=== PATIENT | male | born 1985 | race Caucasian/White ===

== ENCOUNTER 2023-09-14 20:51 | Emergency (ER) | payer OTHER, SELFPAY ==
[2023-09-14 20:59] VITALS: BP 146/74; PULSE 89; RESP 18; TEMP 37.2; O2SAT 99; BMI 28.9
--- NOTE | 2023-09-14 21:29 | CRLHL7_ITS ---
For Patients: As a result of the Century Cures Act, medical imaging exams and procedure reports are released immediately into your electronic medical record. You may view this report before your referring provider. If you have questions, please contact your health care provider. INDICATION: Left-sided testicle swelling and pain for 1 week. COMPARISON: None. TECHNIQUE: Diaz scale imaging was performed of the scrotum. Color Doppler and spectral Doppler analysis was performed of the testes. FINDINGS: Testes: The right testis measures 3.6 x 2.0 x 2.5 cm and the left testis measures 3.7 x 2.1 x 2.4 cm. The testes demonstrate normal arterial and venous blood flow on color Doppler and spectral Doppler analysis. The testes have uniform echogenicity without evidence of a suspicious mass or area of inflammation. Epididymis: The right epididymis appears normal. The left epididymis is enlarged with increased vascular flow. Other: Moderate left hydrocele. Left-sided varicocele is present. Left-sided scrotal wall thickening/edema. IMPRESSION: 1. Enlarged hypervascular left epididymis compatible with epididymitis. No evidence of torsion. 2. Moderate left hydrocele and left-sided varicocele. Dictated by Amanda Arguello MD @ 09/15/2023 12:06:23 AM (Electronically Signed)
--- NOTE | 2023-09-14 22:13 | ED_ITS ---
HPI - General Adult General Chief complaint: Urogenital Problems, Male Stated complaint: testicle pain Time Seen by Provider: 09/14/23 21:11 History of Present Illness HPI narrative: CC: Left Testicluar Pain pt. notieced pain about a week ago. feels lump on testicle. twice the size of right testicle. denies urinary symptoms. pt. states my ejaculation shoots farther then before, and is clear, not creamy. denies pain with ejaculation. 38-year-old man presenting to the emergency department with concern of painful swelling on his left testicle or around it. This has been going on about a week. Prior to this he did have what sounds like a light trauma event while working out at the gym the next morning it was rather sore and swelling has increased. Has not noticed any hematuria no dysuria. During exam he does admit that he has always had very sensitive testicles. The left testicle in particular has swelled up. He has also noted ejaculate that is now clear and issues out surprisingly far. He has not had a fever. No discharge otherwise. What I understand to be some years ago he has had episodes where he feels like he has sudden pain and that it must be twisted and he demonstrates on twisting it and this apparently has resulted in relief of his discomfort. Does not otherwise describe any major/significant trauma. Related Data Home Medications ?Medication ?Instructions ?Recorded ?Confirmed tadalafil 20 mg tablet (Cialis) 20 mg PO DAILY 09/14/23 09/14/23 testosterone 100 mg/mL mg IM DIRECTED 09/14/23 intramuscular suspension Allergies Allergy/AdvReac Type Severity Reaction Status Date / Time cefaclor [From [facility]] Allergy Unknown Verified 09/14/23 21:23 Review of Systems Status of ROS: Reports: 6 or more systems reviewed and unremarkable except as noted in History and below [facility] Medical History Biceps tendinitis on right ?M75.21 - Bicipital tendinitis, right shoulder (ICD-10) Patellofemoral syndrome ?M22.2X9 - Patellofemoral disorders, unspecified knee (ICD-10) 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 - Juvenile osteochondrosis of tibia tubercle, unspecified leg (ICD- 10) Migraine, unspecified, intractable, without status migrainosus ?G43.919 - Migraine, unspecified, intractable, without status migrainosus (ICD-10) Lumbago ?M54.50 - Low back pain, unspecified (ICD-10) Hemorrhoid ?K64.9 - Unspecified hemorrhoids (ICD-10) Esophageal reflux ?K21.9 - Gastro-esophageal reflux disease without esophagitis (ICD-10) ADD (attention deficit disorder) without hyperactivity ?F98.8 - Other specified behavioral and emotional disorders with onset usually occurring in childhood and adolescence (ICD-10) Allergic rhinitis ?J30.9 - Allergic rhinitis, unspecified (ICD-10) Surgical History History of eye surgery ?Z98.890 - Other specified postprocedural states (ICD-10) History of shoulder surgery ?Z98.890 - Other specified postprocedural states (ICD-10) Social History Smoking Status: Never smoker Second hand tobacco smoke exposure: No How often do you have a drink containing alcohol: monthly or less AUDIT-C Alcohol total score: 1 Non-prescribed substance use: marijuana (any form) Exam Narrative: Exam Narrative: Pleasant. NAD. Of good energy. Well muscled. Accompanied here by significant other. Abdomen is soft. No inguinal lymphadenopathy. Right testicle seems little smaller. Left is approximately 4 cm with some epididymal area enlargement. Quite tender to palpation. No erythema no induration of the scrotum. Penis otherwise appears unremarkable. Const: Vital Signs, click to edit/add: Vital Signs - 24 hr 09/14/23 20:59 Temperature 99.0 F Pulse Rate [Right Pulse Oximeter] 89 Respiratory Rate 18 Blood Pressure [Ri ght Upper Arm] 146/74 H Pulse Oximetry 99 Oxygen Delivery Me thod Room Air Documenting provider has reviewed patient's vital signs: yes Course Vital Signs Vital signs: Initial Vital Signs Temperature 99.0 F 09/14/23 20:59 Temperature Source Temporal Artery Scan 09/14/23 20:59 Pulse Rate 89 09/14/23 20:59 Respiratory Rate 18 09/14/23 20:59 Blood Pressure 146/74 H 09/14/23 20:59 Blood Pressure Mean 98 09/14/23 20:59 Blood Pressure Position Sitting 09/14/23 20:59 Pulse Oximetry 99 09/14/23 20:59 Oxygen Delivery Method Room Air 09/14/23 20:59 Vital Signs Temperature 99.0 F 09/14/23 20:59 Pulse Rate 89 09/14/23 20:59 Respiratory Rate 18 09/14/23 20:59 Blood Pressure 146/74 H 09/14/23 20:59 Pulse Oximetry 99 09/14/23 20:59 Oxygen Delivery Method Room Air 09/14/23 20:59 Temperature 99.0 F 09/15/23 00:42 Pulse Rate 84 09/15/23 00:42 Respiratory Rate 18 09/15/23 00:42 Blood Pressure 129/79 09/15/23 00:42 Pulse Oximetry 99 09/15/23 00:41 Oxygen Delivery Method Room Air 09/15/23 00:41 Medical Decision Making MDM Narrative Medical decision making narrative: I would suspect hydrocele maybe spermatocele along with epididymitis/orchitis. I do not think this is torsion event. This would be helpful though to delineate I think given significant symptoms and duration and somewhat recurrence. Have requested ultrasound. Did discuss these findings with billet assembler. Confirm suspicion as above. Left-sided testicle swelling and pain for 1 week. COMPARISON: None. TECHNIQUE: Diaz scale imaging was performed of the scrotum. Color Doppler and spectral Doppler analysis was performed of the testes. FINDINGS: Testes: The right testis measures 3.6 x 2.0 x 2.5 cm and the left testis measures 3.7 x 2.1 x 2.4 cm. The testes demonstrate normal arterial and venous blood flow on color Doppler and spectral Doppler analysis. The testes have uniform echogenicity without evidence of a suspicious mass or area of inflammation. Epididymis: The right epididymis appears normal. The left epididymis is enlarged with increased vascular flow. Other: Moderate left hydrocele. Left-sided varicocele is present. Left-sided scrotal wall thickening/edema. IMPRESSION: 1. Enlarged hypervascular left epididymis compatible with epididymitis. No evidence of torsion. 2. Moderate left hydrocele and left-sided varicocele. See patient discharge plan for further discussion Medical Records Medical records reviewed: Yes I reviewed the patient's medical records Lab Data Lab results reviewed: Yes I reviewed the patient's lab results Labs: Lab Results 09/14/23 Range/Units 23:38 Urine Color Yellow (Yellow) Urine Appearance Clear (Clear) Urine pH 7.0 (5.0-8.5) Ur Specific [place] 1.020 (1.000-1.030) Urine Protein Negative (Negative) Urine Glucose (UA) Negative (Negative) Urine Ketones Negative (Negative) Urine Blood Negative (Negative) Urine Nitrite Negative (Negative) Urine Bilirubin Negative (Negative) Urine Urobilinogen 0.2 (0.2-1.0) Ur Leukocyte Esterase Negative (Negative) Urine RBC 0-2 (0-2) Urine WBC 0-2 (0-5) Ur Squamous Epith Cells Few (None-Few) Urine Bacteria None (None) Discharge Plan Discharge Clinical Impression: Epididymitis, Hydrocele, Left varicocele Patient Disposition: Home w/ Parent or Adult Condition: Stable Additional Instructions: Would wear more snug underwear to elevate scrotum/testicle. Take 600 mg of ibuprofen 3 times daily over the next 4-5 days. Alternatively up to 500 mg of naproxen 2 times daily. Bactrim from [facility]. Take for 12 days. Be seen for marked increase in pain, swelling or new fever. Prescriptions: No Action testosterone 100 mg/mL suspension IM DIRECTED tadalafil [Cialis] 20 mg tablet 20 mg PO DAILY Rx Instructions: administer approximately 30min before sexual activity; do not use more than 1 dose per 24hrs Follow Up/Referrals: Provider,Not a Local [Primary Care Provider] - Stand Alone Forms: [employer] Info Instructions
[2023-09-14 23:43] LABS: Appearance Urine Clear (Clear); Bilirubin Urine Negative (Negative); Blood Urine Negative (Negative); Color Urine Yellow (Yellow); Glucose Urine Negative (Negative); Ketones Urine Negative (Negative); Leukocyte Esterase Urine Negative (Negative); Nitrite Urine Negative (Negative); Protein Urine Negative (Negative); Urobilinogen Urine 0.2 (0.2-1.0)
[2023-09-14 23:49] LABS: RBC Urine 0-2 (0-2); Squamous Epithelial Cell Urine Few (None-Few); WBC Urine 0-2 (0-5)
[2023-09-15 00:41] VITALS: BP 129/79; PULSE 84; RESP 18; TEMP 37.2; O2SAT 99
[2023-09-15 00:42] VITALS: BP 129/79; PULSE 84; RESP 18; TEMP 37.2
== END 2023-09-15 00:42 | disposition home or self-care (01) ==
PROVIDERS: Emergency Provider Family Medicine
DX: N45.1 Epididymitis (principal); N43.3 Hydrocele, unspecified; I86.1 Scrotal varices
CPT/HCPCS: 76870; 81001; 93976; 99284